=== PATIENT | male | born 1970 | race Caucasian/White ===

== ENCOUNTER 2016-08-02 12:47 | Emergency (ER) | payer MEDICAID ==
[~2016-08-02] VITALS: Ht 185.4 cm; Wt 108.9 kg
[~2016-08-02 12:47] MED LIST: BACTRIM DS 8001 TA1 PO; HYDROCODONE/ACE1 TA5 PO; MEDROL 4MG. DOSE4 MG PO; OXYCODONE30 MG PO; PREDNISONE 20MG20 MG PO; VALIUM 10MG TAB10 MG PO
--- NOTE | 2016-08-02 13:34 | Emergency Room Report ---
History of Present Illness Time Seen by MD Meza Presenting Problem in Triage Pt arrived:Walked Presenting Problem:PT REPORTS THAT HE WAS "BUSTING UP CONCRETE FLOOR" AT HIS HOUSE YESTERDAY AND BELIVES THAT A PIECE OF CONCRETE GOT IN HIS R EYE. PT REPORTS THAT HE HAS TRIED VISINE TO FLUSH EYE OUT WITH NO RELIEF. 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 N Clinical Suspician of Infection? N Mental Status: 1 - Regular (Normal Baseline) Sepsis Risk:Low Sepsis Risk Have you (or family members/close friends) recently traveled outside the [place]? N If Yes, where/when: Have you had exposure to infectious disease within the past month? N TB? Other? Specify: Source patient, RN notes reviewed Exam Limitations no limitations Comment Pt reports he was bursting a concrete floor at home yesterday and a piece got into his right eye. He tried to flush it with Visine but it is still hurting him today. Cardiac Chest Pain Chest pain indicative of cardiac No ALLERGIES Coded Allergies: Penicillins (12/23/15) History Medical History General CAD? No Angina: No [place]: No Hypertension? No Hyperlipidemia? No CHF? No DVT? No PE? No COPD? No Asthma? No Anemia? No GERD? No Gastric ulcers? No GI Bleed? No Hernia? No Thyroid Problems? No Hypothyroidism? No CVA? No Seizures? No Diabetes? No Renal Insuffiency? No End Stage Renal Disease? No UTI? No Stones? No GB Disease: No Nephritic Syndrome? No Asplenia? No Hepatitis? No Sickle Cell Disease? No Arthritis? No Migraines? No Cataracts? No Glaucoma? No MRSA? No HIV? No TB? No Anxiety? No Depression? No Cancer? No More? No Immunization Hx DT/Tetanus Unknown Surgical Hx Previous Surgery?N Social History Smoking Hx Smoker: Current Every Day Smoker Tobacco: Yes Type Cigarettes Packs/day 1 1/2 - 2 Packs Alcohol Alcohol: No Review of Systems All Other Systems Reviewed and Negative Constitutional see HPI Eyes see HPI Physical Exam Vital Signs Vital Signs Date Time Temp Pulse Resp B/P Pulse O2 O2 Flow FiO2 Ox Delivery Rate 08/02 1257 98.6 62 18 114/66 97 General Appearance normal appearance, WD/WN, no apparent distress Eye Exam - right eye other (corneal abrasion) Respiratory Status No: respiratory distress. 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 No Results/Orders Current Medication Orders Sig/Lianna Start time Last Medication Dose Route Stop Time Status Admin Miscellaneous 0 .STK-MED ONE 08/02 1320 DC XX Departure Departure Time of Disposition 1333 Disposition DC Home or Self Care(routine) Clinical Impression Primary Impression: Injury of conjunctiva and corneal abrasion of right eye without foreign body Qualifiers: Encounter type: initial encounter Qualified Code: S05.01XA - Injury of conjunctiva and corneal abrasion without foreign body, right eye, initial encounter Condition STABLE Referrals Kina CLANCY,Jimmy Brice (Family): 2 Days-Call Office Patient Instructions Corneal Abrasion, DI for Corneal Abrasion Additional Instructions Use Gentamicin drops 1 gtt in right eye every 4 hours while awake. If not 100% better in 24 hours, need to followup with an Eye doctor Discharge Counseling Counseled pt/family regarding diagnosis, test results, medications/RX, home care, follow up needs ED Critical Care Critical Care No If Critical Care minutes are documented, the time involved in the performance of seperately reportable procedures was not counted toward critical care time documented. I directly delivered medical care to this critically ill and/or injured patient. Timely evaluation and treatment was necessary to address the significant organ system(s) dysfunction present in this patient. at 1334
[2016-08-02 13:39] VITALS: BP 107/60
--- OUTSIDE RECORDS SUMMARY | 2016-08-03 22:47 | External Medical Summary Rpt ---
Author Author , Organization [employer] Address Unknown Phone Unavailable Care Team Providers Care Motorcycle Repair Shop Supervisor Name Role Phone NIEVES LIZBETH Unavailable Unavailable LIZBETH BUSCH, LIZBETH BUSCH Unavailable Unavailable MALIA SPEEDY, MALIA Unavailable Unavailable [facility] Unavailable Unavailable INC, [facility], Unavailable Unavailable [facility], Unavailable Unavailable PLLC, [facility] Purpose Continuity of Care Document - 11-05-2015 through 2016 Problems Code Diagnosis DOS Provider Status M779 ENTHESOPATH 12-23-2015 [facility], UNSPECIFIED [facility] [id number] UNSPECIFIED 12-23-[address] [facility] RIGHT ELBOW INC INITIAL ENCOUNTER Z720 TOBACCO USE 12-23-2015 [facility] INC L237 ALLERGIC 11-28-2015 [facility] CONTACT PHYSICIAN DERMATITIS GROUP D/T PLANTS EXCP FOOD H9202 OTALGIA 11-05-2015 [facility] LEFT EAR PHYSICIAN GROUP J0190 ACUTE 11-05-2015 [facility] SINUSITIS PHYSICIAN UNSPECIFIED GROUP M23.90 UNSPECIFIED INTERNAL DERANGEMENT OF UNSPECIFIED KNEE M77.8 OTHER ENTHESOPATH IES, NOT ELSEWHERE CLASSIFIED S05.01XA INJ CONJUNCTIVA AND CORNEAL ABRASION W/O FB, RIGHT EYE, INIT S61.213A LACERATION W/O FB OF L MID FINGER W/O DAMAGE TO NAIL, INIT Procedures Procedure DOS Code Location Performer Comment RADEX 89129 [facility] COMPLETE INC INC MINIMUM 3 VIEWS INJECTION J1040 [facility] LIZBETH JO-ANN 6 PHYSICIAN METHYLPRE GROUP DNISOLONE ACETATE 80 MG THERAPEUT 22230 [facility] LIZBETH BELLOS IC 6 PHYSICIAN PROPHYLAC GROUP TIC/DX INJECTION SUBQ/IM Encounters Encounter Start End Date Code Location Performer Type Date EMERGENCY 01464 GHAZALA 6 6 [facility] DEPARTMEN INC T VISIT LIMITED/M INOR [facility] GHAZALA - 6 6 [facility] OUTPATIEN INC T EMERGENCY 15959 AG FINLEY 6 6 PHYSICIAN PHILL LARSEN T VISIT MODERATE SEVERITY OFFICE 53695 [facility] LI[facility]BETH [facility] 6 6 PHYSICIAN T VISIT GROUP 25 MINUTES OFFICE 52774 [facility] LIZBETH JOHNSTON 6 6 PHYSICIAN T NEW 20 GROUP MINUTES
--- OUTSIDE RECORDS SUMMARY | 2016-08-03 22:47 | External Medical Summary Rpt ---
Author Author , Organization [employer] Address Unknown Phone Unavailable Care Team Providers Care Mobile Heavy Equipment Mechanic Name Role Phone NIEVES LIZBETH Unavailable Unavailable LIZBETH BUSCH, LIZBETH BUSCH Unavailable Unavailable MALIA SPEEDY, MALIA Unavailable Unavailable [facility] Unavailable Unavailable INC, [facility], [facility]available Unavailable [facility], Unavailable Unavailable PLLC, [facility] Purpose Continuity of Care Document - 11-05-2015 through 2016 Problems Code Diagnosis DOS Provider Status M779 ENTHESOPATH 12-23-2015 [facility], UNSPECIFIED [facility] [id number] UNSPECIFIED 12-23-2015 [facility] RIGHT ELBOW INC INITIAL ENCOUNTER Z720 TOBACCO USE 12-23-2015 [facility] INC L237 ALLERGIC 11-28-2015 [facility] CONTACT PHYSICIAN DERMATITIS GROUP D/T PLANTS EXCP FOOD H9202 OTALGIA 11-05-2015 [facility] LEFT EAR PHYSICIAN GROUP J0190 ACUTE 11-05-2015 [facility] SINUSITIS PHYSICIAN UNSPECIFIED GROUP M23.90 UNSPECIFIED INTERNAL DERANGEMENT OF UNSPECIFIED KNEE M77.8 OTHER ENTHESOPATH IES, NOT ELSEWHERE CLASSIFIED S05.01XA INJ CONJUNCTIVA AND CORNEAL ABRASION W/O FB, RIGHT EYE, INIT S61.213A LACERATION W/O FB OF L MID FINGER W/O DAMAGE TO NAIL, INIT Procedures Procedure DOS Code Location Performer Comment RADEX 58727 [facility] COMPLETE INC INC MINIMUM 3 VIEWS INJECTION J1040 [facility] LIZBETH JO-ANN 6 PHYSICIAN METHYLPRE GROUP DNISOLONE ACETATE 80 MG THERAPEUT 05107 [facility] LIZBETH BELLOS IC 6 PHYSICIAN PROPHYLAC GROUP TIC/DX INJECTION SUBQ/IM Encounters Encounter Start End Date Code Location Performer Type Date EMERGENCY 76534 GHAZALA 6 6 [facility] DEPARTMEN INC T VISIT LIMITED/M INOR [facility] GHAZALA - 6 6 [facility] OUTPATIEN INC T EMERGENCY 68489 AG FINLEY 6 6 PHYSICIAN PHILL LARSEN T VISIT MODERATE SEVERITY OFFICE 90789 [facility] LIZBETH [facility]END[facility] 6 6 PHYSICIAN T VISIT GROUP 25 MINUTES OFFICE 87013 [facility] LIZBETH JOHNSTON 6 6 PHYSICIAN T NEW 20 GROUP MINUTES
--- OUTSIDE RECORDS SUMMARY | 2016-08-03 22:48 | External Medical Summary Rpt ---
Author Author , Organization [employer] Address Unknown Phone Unavailable Care Team Providers Care Remote Pilot Operator Name Role Phone LIZBETH NIEVES Unavailable Unavailable LIZBETH HASSAN Unavailable Unavailable MALIA SPEEDY, MALIA Unavailable Unavailable [facility] Unavailable Unavailable INC, [facility], Unavailable Unavailable [facility], Unavailable Unavailable PLLC, [facility], [facility] Purpose Continuity of Care Document - 11-05-2015 through 2016 Problems Code Diagnosis DOS Provider Status M779 ENTHESOPATH 12-23-2015 [facility], UNSPECIFIED [facility] [id number] UNSPECIFIED 12-23-2015 [facility] RIGHT ELBOW INC INITIAL ENCOUNTER Z720 TOBACCO USE 12-23-2015 [facility] INC L237 ALLERGIC 11-28-2015 [facility] CONTACT PHYSICIAN DERMATITIS GROUP D/T PLANTS EXCP FOOD H9202 OTALGIA 11-05-2015 [facility] LEFT EAR PHYSICIAN GROUP J0190 ACUTE 11-05-2015 [facility] SINUSITIS PHYSICIAN UNSPECIFIED GROUP Procedures Procedure DOS Code Location Performer Comment RADEX 15507 [facility] ELBOW 6 [facility] COMPLETE INC INC MINIMUM 3 VIEWS THERAPEUT 62624 [facility] LIZBETH BUSCH IC 6 PHYSICIAN PROPHYLAC GROUP TIC/DX INJECTION SUBQ/IM INJECTION J1040 [facility] LIZBETH BUSCH 6 PHYSICIAN METHYLPRE GROUP DNISOLONE ACETATE 80 MG Encounters Encounter Start End Date Code Location Performer Type Date EMERGENCY 89649 G[facility]ZAL[facility] 6 6 [facility] DEPART[facility] INC T VISIT LIMITED/M INOR PROB EMERGENCY 38842 AG FINLEY 6 6 PHYSICIAN SPEEDY DEPARTMEN S, PLLC T VISIT MODERATE SEVERITY HOSPITAL GHAZALA - 6 6 [facility] OUTPATIEN INC T OFFICE 22675 [facility] LIZBETH BUSCH OUTPATIEN 6 6 PHYSICIAN T VISIT GROUP 25 MINUTES OFFICE 63163 [facility] 6 PHYSICIAN T [facility] 20 GROUP MINUTES
--- OUTSIDE RECORDS SUMMARY | 2016-08-03 22:48 | External Medical Summary Rpt ---
Author Author , Organization [employer] Address Unknown Phone Unavailable Care Team Providers Care Card Stripper Name Role Phone LIZBETH NIEVES Unavailable Unavailable LIZBETH HASSAN Unavailable Unavailable MALIA SPEEDY, MALIA Unavailable Unavailable [facility] Unavailable Unavailable INC, [facility], Unavailable Unavailable [facility], Unavailable Unavailable PLLC, [facility], [facility] Purpose Continuity of Care Document - 11-05-2015 through 2016 Problems Code Diagnosis DOS Provider Status M779 ENTHESOPATH 12-23-2015 [facility], UNSPECIFIED [facility] [id number] UNSPECIFIED 12-23-2015 [facility] RIGHT ELBOW INC INITIAL ENCOUNTER Z720 TOBACCO USE 12-23-2015 [facility] L237 ALLERGIC 11-28-2015 [facility] CONTACT PHYSICIAN DERMATITIS GROUP D/T PLANTS EXCP FOOD H9202 OTALGIA 11-05-2015 [facility] LEFT EAR PHYSICIAN GROUP J0190 ACUTE 11-05-2015 [facility] SINUSITIS PHYSICIAN UNSPECIFIED GROUP Procedures Procedure DOS Code Location Performer Comment RADEX 27974 [facility] ELBOW 6 [facility] COMPLETE INC INC MINIMUM 3 VIEWS THERAPEUT 76075 [facility] LIZBETH BUSCH IC 6 PHYSICIAN PROPHYLAC GROUP TIC/DX INJECTION SUBQ/IM INJECTION J1040 [facility] LIZBETH BUSCH 6 PHYSICIAN METHYLPRE GROUP DNISOLONE ACETATE 80 MG Encounters Encounter Start End Date Code Location Performer Type Date EMERGENCY 06112 G[facility] 6 6 [facility] INC T VISIT LIMITED/M INOR PROB EMERGENCY 37717 AG FINLEY 6 6 PHYSICIAN SPEEDY DEPARTMEN S, PLLC T VISIT MODERATE SEVERITY [facility]OSPITAL G[facility]ZALA - 6 6 [facility] OUTPATIEN INC T OFFICE 75049 [facility] LIZBETH BUSCH OUTPATIEN 6 6 PHYSICIAN T VISIT GROUP 25 MINUTES OFFICE 43028 [facility] 6 PHYSICIAN T [facility] 20 GROUP MINUTES
--- OUTSIDE RECORDS SUMMARY | 2016-08-03 22:48 | External Medical Summary Rpt ---
Demographics Preferred Language Puerto Rican Marital Status Unknown Adventism Affiliation Unknown Race Unknown Ethnic Group Unknown Author Author , Organization [employer] Address Unknown Phone Unavailable Purpose Continuity of Care Document - through 2016 Immunization No patient found.
--- OUTSIDE RECORDS SUMMARY | 2016-08-03 22:48 | External Medical Summary Rpt ---
Author Author ROLANDO Barry, [employer] Organization [employer] Address Unknown Phone Unavailable
--- OUTSIDE RECORDS SUMMARY | 2016-08-03 22:48 | External Medical Summary Rpt ---
Demographics Preferred Language Lebanese Marital Status Unknown Sabianism Affiliation Unknown Race Unknown Ethnic Group Unknown Author Author , Organization [employer] Address Unknown Phone Unavailable Purpose Continuity of Care Document - through 2016 Immunization No patient found.
== END 2016-08-02 13:40 | disposition home or self-care (01) ==
LOC: ER 12:47
DX: S05.01XA Injury of conjunctiva and corneal abrasion without foreign body, right eye, initial encounter (principal); Z72.0 Tobacco use

== ENCOUNTER 2017-03-05 13:21 | Emergency (ER) | payer MEDICAID ==
[~2017-03-05] VITALS: Ht 185.4 cm; Wt 93.0 kg
[~2017-03-05 13:21] MED LIST changes: +ARTIFICIAL TEAR15 M6 OP; +NEURONTIN 300M300 MG PO; +PREDNISONE 5MG.5 MG PO
--- OUTSIDE RECORDS SUMMARY | 2017-03-05 13:26 | External Medical Summary Rpt | CCD ---
Author Author , SARAH Organization SARAH Address Unknown Phone Purpose Continuity of Care Document - 11-23-2016 through 2016 Problems Code Diagnosis DOS Provider Status G51.0 [facility] M23.90 UNSPECIFIED INTERNAL DERANGEMENT OF UNSPECIFIED KNEE M77.8 OTHER ENTHESOPATH IES, NOT ELSEWHERE CLASSIFIED S05.01XA INJ CONJUNCTIVA AND CORNEAL ABRASION W/O FB, RIGHT EYE, INIT S61.213A LACERATION W/O FB OF L MID FINGER W/O DAMAGE TO NAIL, INIT
--- OUTSIDE RECORDS SUMMARY | 2017-03-05 13:27 | External Medical Summary Rpt | CCD ---
Author Author [employer] Organization [employer] Address Unknown Phone Unavailable Purpose Continuity of Care Document - through 2016
--- OUTSIDE RECORDS SUMMARY | 2017-03-05 13:27 | External Medical Summary Rpt ---
Author Author ROLANDO Asha, [employer] Organization [employer] Address Unknown Phone Unavailable Results CBC W Auto Differential panel in Blood Observa Value Referen Units Interpr Notes Date tion ce etation Range Basophils 0 - 0.2 K/MM3 Normal No Nov 23 informati 2017 2:40 [#/volume on in PM ] in source Blood by data Automated count Basophils 0.1 - 2.0 % Normal No Nov 23 /100 informati 2017 2:40 leukocyte on in PM s in source Blood by data Automated count Eosinophi 0.0 - 0.4 K/mm3 Normal No Nov 23 ls informati 2017 2:40 [#/volume on in PM ] in source Blood by data Automated count Eosinophi 0.1 - % Normal No Nov 23 ls/100 12.0 informati 2017 2:40 leukocyte on in PM s in source Blood by data Automated count Granulocy 1.3 - 8.0 K/mm3 Normal No Nov 23 jack informati 2017 2:40 [#/volume on in PM ] in source Blood by data Automated count Granulocy 37.0 - % Normal No Nov 23 jack/100 80.0 informati 2017 2:40 leukocyte on in PM s in source Blood by data Automated count Hematocri 42.0 - % Normal No Nov 23 t [Volume 52.0 informati 2016 2:40 on in PM Fraction] source of Blood data Hemoglobi 14.1 - g/dL Normal No Nov 23 n 18.0 informati 2017 2:40 [Mass/vol on in PM ume] in source Blood data Lymphocyt 0.7 - 4.5 K/mm3 Normal No Nov 23 es informati 2017 2:40 [#/volume on in PM ] in source Unspecifi data ed specimen by Automated count Lymphocyt 10 - 50 % Normal No Nov 23 es informati 2016 2:40 [#/volume on in PM ] in source Unspecifi data ed specimen by Automated count Erythrocy 27 - 31.2 pg Normal No Nov 23 te mean informati 2017 2:40 corpuscul on in PM ar source hemoglobi data n [Entitic mass] Erythrocy 31.8 - g/dl Normal No Nov 23 te mean 35.4 informati 2017 2:40 corpuscul on in PM ar source hemoglobi data n concentra tion [Mass/vol ume] by Automated count Erythrocy 82.2 - fl Normal No Nov 23 te mean 97.8 informati 2017 2:40 corpuscul on in PM ar volume source [Entitic data volume] by Automated count Monocytes 0.1 - 1.0 K/mm3 Normal No Nov 23 informati 2017 2:40 [#/volume on in PM ] in source Blood by data Automated count Monocytes 1.7 - 9.3 % Normal No Nov 23 /100 informati 2017 2:40 leukocyte on in PM s in source Blood by data Automated count Platelet 7.4 - fl Normal No Nov 23 mean 10.4 informati 2017 2:40 volume on in PM [Entitic source volume] data in Blood by Automated count Platelets 142 - 424 K/mm3 Normal No Nov 23 informati 2017 2:40 [#/volume on in PM ] in source Blood data Erythrocy 4.6 - 6.2 M/mm3 Normal No Nov 23 jack informati 2017 2:40 [#/volume on in PM ] in source Amniotic data fluid Erythrocy 11.5 - % Normal No Nov 23 te 17.5 informati 2017 2:40 distribut on in PM ion width source [Entitic data volume] by Automated count Leukocyte 4.8 - K/MM3 Normal No Nov 23 s 10.8 informati 2016 2:40 [#/volume on in PM ] in source Blood data
--- OUTSIDE RECORDS SUMMARY | 2017-03-05 13:27 | External Medical Summary Rpt | CCD ---
Author Author , ROLANDO MARSHALL Address Unknown Phone Immunization Name Date Rout CVX Reac Dose Comm Prov Is Faci e tion ent ider Refu lity Give sed n Td 10-1 9 999 Hist H191 No H191 (evert 4-19 oric lt), 98 al Info adso rmat rbed ion - Sour ce Unsp ecif ied
[2017-03-05] MEDS ORDERED: ZOFRAN ODT4 MG PO (14:46)
--- NOTE | 2017-03-05 14:47 | Urgent Treatment Center Report ---
History of Present Issue Date/Time Seen by Provider 03/05/17 1341 Visit Reason Pt arrived:Walked Presenting Problem:PT IS C/O LEFT EAR PAIN, SORE THROAT AND CONGESTION Location if Accident: Onset of symptoms date/time:/ or onset unknown for:MEDICAL HX UNKNOWN Have you (or family members/close friends) recently traveled outside the [place]? N If Yes, where/when: Have you had exposure to infectious disease within the past month? TB? Other? Specify: new today, sore throat and nausea w/ diarrhea, son and now w/ same symptoms. Ear pain unchanged, chronic, seeing ent. No treatment before arrival. Source patient Exam Limitations no limitations ALLERGIES Coded Allergies: Penicillins (12/23/15) Home Medications Active Scripts Prednisone (Prednisone 5MG) 5 MG PO DIRECTED #52 TAB Prov: 11/23/16 Gabapentin (Neurontin 300MG) 300 MG PO BID #40 CAP Prov: 11/23/16 Polyvinyl Alcohol (Artificial Tears) 2 DROP OP A4H #15 ML Ref 1 Prov: 11/23/16 History Medical History General CAD? No Angina: No [place]: No Hypertension? No Hyperlipidemia? No CHF? No DVT? No PE? No COPD? No Asthma? No Anemia? No GERD? No Gastric ulcers? No GI Bleed? No Hernia? No Thyroid Problems? No Hypothyroidism? No CVA? No Seizures? No Diabetes? No Renal Insuffiency? No UTI? No Stones? No BPH? No GB Disease: No Nephritic Syndrome? No Asplenia? No Hepatitis? No Sickle Cell Disease? No Arthritis? No Migraines? No Cataracts? No Glaucoma? No MRSA? No HIV? No TB? No Anxiety? No Depression? No Cancer? No More? No Immunization HX DT/Tetanus Unknown Surgical Hx Previous Surgery?N Social History Smoking Hx Smoker: Never Smoker Tobacco: No Packs/day 1 1/2 - 2 Packs Alcohol Alcohol: No Review of Systems All Other Systems Reviewed and Negative Constitutional see HPI, denies fever, denies malaise Eyes denies drainage ENT see HPI. denies: ear discharge, nose discharge, nose congestion. Respiratory denies cough Gastrointestinal see HPI, denies abdominal pain, denies vomiting Genitourinary denies: dysuria, frequency. Musculoskeletal denies joint pain Skin denies rash Psychiatric/Neurological denies headache Physical Exam Vital Signs Vital Signs Date Time Temp Pulse Resp B/P Pulse O2 O2 Flow FiO2 Ox Delivery Rate 03/05 1451 98.0 69 20 125/77 99 03/05 1341 98.0 72 20 127/76 97 General Appearance normal appearance, no apparent distress Eye Exam - bilateral eye normal exam Ear, Nose, Throat normal ENT inspection Respiratory Status No: respiratory distress, productive cough, non productive cough. Lung Sounds anterior: lungs clear. posterior: lungs clear. bilateral: lungs clear. Cardiovascular regular rate/rhythm, no peripheral edema, no murmur Gastrointestinal non tender, soft, no organomegaly, no pulsatile mass, abnormal bowel sounds (hyperactive), no guarding, no rebound Back no CVA tenderness Neurologic alert, oriented x 3 Skin normal color, warm/dry Lymphatic no adenopathy Medical Decision Making LABS/Meds/Orders Pt receiving controlled substance in ED? No Results/Orders Laboratory Tests 03/05/17 1354: Group A Strep Screen NOT DETECTED Orders Procedure Date/time Status [facility] STREP SCREEN 03/05 1354 Complete Departure Departure Time of Disposition 1445 Disposition DC Home or Self Care(routine) Clinical Impression Primary Impression: Acute viral pharyngitis Condition STABLE Referrals Kina CLANCY,Jimmy Brice (Family) IMMEDIATELY for new or worsening symptoms OR no noticeable improvement over the next 48-72 hours. Patient Instructions DI for Viral Pharyngitis Additional Instructions * No sign of bacterial infection. Likely viral. Virus can take 7-14 days to run their course * Monitor Temp. Tylenol every 4 hours as needed no more then 5 times a day or 4000mg in 24 hours and/or ibuprofen every 6 hours as needed no more then 3200mg in 24 hours (as long as your primary care doctor has told you that it is ok to take both) for fever/aches/pain. ER if fever no less than 101 despite tylenol and ibuprofen * Encourage fluids, water, gatorade, powerade, pedialyte if infant/toddler/child * warm salt water gargles * warm fluids * sore throat lozenges * sleep elevated * humidifier/vaporizer * * Your throat swab was sent for culture. Those results are typically sent to your primary care. Be sure to follow up in 2-3 days if no improvement so they can review those results and treat if necessary. If you don't have primary care, I recommend you get one but in the mean time, you will have to return to a walk in clinic. * No food is ok as long as you or your child is drinking. Once ready to eat, start bland. bananas, rice, applesauce, toast * Contagious until no diarrhea, vomiting, fever x 24 hours without medication * Avoid anti-diarrheals unless told otherwise. Best to let the virus run its course. * zofran as needed for nausea/vomiting Discharge Counseling Counseled pt/family regarding diagnosis, test results, medications/RX, home care, follow up needs Prescriptions Current Visit Scripts Ondansetron (Zofran 4MG Odt) 4 MG PO Q8HP PRN nausea and vomiting #6 ODT at 0031
[2017-03-05 14:51] VITALS: BP 125/77
== END 2017-03-05 14:51 | disposition home or self-care (01) ==
LOC: UTC 13:21
DX: J02.9 Acute pharyngitis, unspecified (principal); Z88.0 Allergy status to penicillin